=== PATIENT | female | born 1950 | race African-American/Black ===

== ENCOUNTER 2020-03-18 17:55 | Emergency (ER) | payer SELFPAY ==
[2020-03-18 18:10] VITALS: BP 160/57; PULSE 57; TEMP 97.9; BMI 32.3
[2020-03-18] MEDS ORDERED: ACETAMINOPHEN 325 MG TABLET (FP) PO ONE (19:50)
[2020-03-18] MEDS ORDERED: OXYMETAZOLINE 0.05% NASAL SOLUTION 15 ML BOTTLE NS ONE (19:51)
[2020-03-18] MEDS ORDERED: ACETAMINOPHEN 325 MG TABLET (FP) ONE (19:57)
== END 2020-03-18 20:38 | disposition home or self-care (01) ==
LOC: JER 17:55
DX: R04.0 Epistaxis (principal)
CPT/HCPCS: 99283-25